=== PATIENT | male | born 1985 | race Caucasian/White ===

== ENCOUNTER 2017-05-15 21:44 | Emergency (ER) | payer BC, OTHER ==
[2017-05-15 21:50] VITALS: RESP 20
[2017-05-15] MEDS ORDERED: PROPARACAINE 0.5% OPHTH DROPS 15 ML BTL RIGHT EYE STA (22:03)
--- NOTE | 2017-05-15 22:33 | XR ---
EXAMINATION TYPE: XR orbit complete bilateral DATE OF EXAM: 05/15/2017 COMPARISON: NONE HISTORY: Eye pain TECHNIQUE: 3 views FINDINGS: Orbital margins are intact. Maxilla is intact. There is no evidence of blowout fracture. Th ere is no sign of radiopaque foreign body. IMPRESSION: Negative orbits exam.
[2017-05-15] MEDS ORDERED: ACET/COD 300 MG/30 MG STARTER PACK 6 TAB BTL PO STA (22:50)
--- NOTE | 2017-05-15 22:50 | ED ---
General Adult HPI - General Chief complaint: ENT Stated complaint: Eye Injury Time Seen by Provider: 05/15/17 21:57 Source: patient, RN notes reviewed Mode of arrival: ambulatory Limitations: no limitations - History of Present Illness Initial comments: This is a 32-year-old male presents to emergency department with chief complaint of right eye pain. Patient states that yesterday at around 1 PM he was working on a vehicle and the alternator fell about arms length with onto his face. Patient states he sustained a small laceration and bled immediately. States bleeding was controlled shortly after. Patient states since that time there has been pain superior to his eye and the eyeball itself. He states that his vision is blurred specifically his right peripheral vision. Patient states that it feels like there is pressure behind his eye. Patient states that he had a foreign material at lateral aspect of eye that removed with a soft Q- tip. Patient denies any foreign body sensation in eye. Patient states that he has taken 2000 mg of Tylenol today and 600 mg of ibuprofen. Denies itchiness. Denies fever, chills, chest pain, shortness of breath, abdominal pain, nausea or vomiting, constipation or diarrhea, dysuria or hematuria, numbness or tingling or headache. - Related Data Home Medications Medication Instructions Recorded Confirmed HYDROcodone/APAP 5-325MG [[place] 5] 1 each PO Q4HR PRN 12/15/14 05/19/15 Propranolol HCl [Propranolol HCl 60 mg PO DAILY 05/18/15 05/19/15 ER] Previous Rx's Medication Instructions Recorded ALPRAZolam [Xanax] 0.5 mg PO BID PRN #6 tablet 12/15/14 Ciprofloxacin HCl [Cipro] 500 mg PO Q12HR #20 tablet 05/18/15 Ibuprofen [Motrin] 800 mg PO Q8HR PRN #30 tab 05/18/15 Ondansetron Odt [Zofran ODT] 4 mg PO Q8HR PRN #10 tab 05/18/15 Doxycycline Hyclate 100 mg PO BID #28 tab 05/19/15 Allergies Allergy/AdvReac Type Severity Reaction Status Date / Time No Known Allergies Allergy Verified 05/15/17 21:49 Review of Systems ROS Statement: Those systems with pertinent positive or pertinent negative responses have been documented in the HPI. ROS Other: All systems not noted in ROS Statement are negative. Past Medical History Past Medical History: Hypertension History of Any Multi-Drug Resistant Organisms: None Reported Past Surgical History: No Surgical Hx Reported Past Psychological History: No Psychological Hx Reported Smoking Status: Never smoker Past Alcohol Use History: Rare Past Drug Use History: None Reported General Exam - General Exam Comments Initial Comments: General: Awake and alert, well-developed; in no apparent distress. HEENT: Head normocephalic. Mild swelling lateral aspect of right eyebrow. There is a small healed abrasion. No surrounding erythema. Pupils are equal, round and reactive to light. Extraocular movements intact. No hyphema or injected conjunctiva. Fluorescein staining revealed no abrasions or ulcers. Visual acuity in right eye was 20/70. IOP of right eye was 13. Oropharynx moist without erythema or exudate. Neck: Supple. Normal ROM. Cardiovascular: Regular rate and rhythm. No murmurs, rubs or gallops. Chest symmetrical. Respiratory: Lungs clear to auscultation bilaterally. No wheezes, rales or rhonchi. Normal respiratory effort with no use of accessory muscles. Skin: [place], warm and dry. Neurological: Alert and oriented x3. CN II-XII grossly intact. Speech is fluent and answers are appropriate. No focal neuro deficits. Psychiatric: Normal mood and affect. No overt signs of depression or anxiety noted. Limitations: no limitations Course Vital Signs 05/15/17 21:45 Temperature 99.4 F Pulse Rate 110 H Respiratory 20 Rate Blood Pressure 166/99 O2 Sat by Pulse 100 Oximetry Medical Decision Making - Medical Decision Making This is a 32-year-old male who presents to emergency department with chief complaint of right eye injury. Fluorescein staining revealed no abrasions or ulcers. Intraocular pressure was 13. X-ray of orbits revealed no acute fractures or dislocations. Patient continues to complain of pain surrounding eye. He will be discharged home and given a referral to ophthalmology. He was advised to call tomorrow morning. Patient given Tylenol #3 to help with pain and sleep. Patient instructed to only take 1 tonight so that he does not exceed maximum daily dose. He is in agreement with the plan and voiced understanding. All questions were answered. - Radiology Data Radiology results: report reviewed Orbit x-ray findings: Orbital margins are intact. Maxilla is intact. There is no evidence of blowout fracture. There is no sign of radiopaque foreign body. Impression: Negative orbits exam Disposition Clinical Impression: Pain in periorbital region of right eye Disposition: HOME SELF-CARE Condition: Good Instructions: Blurred Vision (ED), Eye Pain (ED) Additional Instructions: Please follow up with Dr. Mchugh, ophthalmology tomorrow morning. Please take medications as prescribed. Please follow up with primary care provider within 1- 2 days. Return to emergency department if symptoms should worsen or any concerns arise. Referrals: None,Stated [Primary Care Provider] - 1-2 days Sheldon Mchugh MD [STAFF PHYSICIAN] - 1-2 days Time of Disposition: 22:53
[2017-05-15 23:04] VITALS: BP 156/80; PULSE 97; TEMP 99
== END 2017-05-15 23:04 | disposition home or self-care (01) ==
LOC: EC 21:44
DX: H57.11 Ocular pain, right eye (principal); I10 Essential (primary) hypertension; Z79.899 Other long term (current) drug therapy
CPT/HCPCS: 70200; 99283

== ENCOUNTER 2021-06-06 17:01 | Emergency (ER) | payer BC ==
[2021-06-06 18:20] VITALS: TEMP 99.5
[2021-06-06] MEDS ORDERED: SODIUM CHLORIDE 0.9% 1,000 ML IV STA (20:58)
[2021-06-06] MEDS ORDERED: SODIUM CHLORIDE 0.9% 50 ML IVPB ONE (21:30)
--- NOTE | 2021-06-06 21:36 | XR ---
EXAMINATION TYPE: XR chest 1V portable DATE OF EXAM: 06/06/2021 COMPARISON: 07/27/2012 INDICATION: Covid TECHNIQUE: Single frontal view of the chest is obtained. FINDINGS: The heart size is normal. The pulmonary vasculature is normal. The lungs are clear. IMPRESSION: 1. No acute pulmonary process.
--- NOTE | 2021-06-06 21:44 | ED ---
URI HPI - General Chief Complaint: Upper Respiratory Infection Stated Complaint: covid+, wants infusion Time Seen by Provider: 06/06/21 20:47 Source: patient, RN notes reviewed Mode of arrival: ambulatory Limitations: no limitations - History of Present Illness Initial Comments: Patient is a 36-year-old male with history of hypertension, presenting to the emergency department requesting monoclonal antibodies. Patient states he tested positive for covid 10 days ago, symptoms began that day as well. He states been having increased cough, shortness of breath, fatigue. He denies any abdominal pain, some intermittent nausea, no appetite. He denies any diarrhea, no chest pain some intermittent shortness of breath when he tries do a lot of activity. No dizziness or lightheadedness. Has been having intermittent fevers. He has no further complaints. His vital signs are stable upon arrival. - Related Data Home Medications Medication Instructions Recorded Confirmed HYDROcodone/APAP 5-325MG [[place] 5] 1 each PO Q4HR PRN 12/15/14 05/19/15 Propranolol HCl [Propranolol HCl 60 mg PO DAILY 05/18/15 05/19/15 ER] Previous Rx's Medication Instructions Recorded ALPRAZolam [Xanax] 0.5 mg PO BID PRN #6 tablet 12/15/14 Ciprofloxacin HCl [Cipro] 500 mg PO Q12HR #20 tablet 05/18/15 Ibuprofen [Motrin] 800 mg PO Q8HR PRN #30 tab 05/18/15 Ondansetron Odt [Zofran ODT] 4 mg PO Q8HR PRN #10 tab 05/18/15 Doxycycline Hyclate 100 mg PO BID #28 tab 05/19/15 Albuterol Inhaler [Ventolin Hfa 1 puff INHALATION RT-QID PRN #8 gm 06/06/21 Inhaler] Allergies Allergy/AdvReac Type Severity Reaction Status Date / Time No Known Allergies Allergy Verified 06/06/21 18:20 Review of Systems ROS Statement: Those systems with pertinent positive or pertinent negative responses have been documented in the HPI. ROS Other: All systems not noted in ROS Statement are negative. Past Medical History Past Medical History: Hypertension History of Any Multi-Drug Resistant Organisms: None Reported Past Surgical History: No Surgical Hx Reported Past Psychological History: No Psychological Hx Reported Past Alcohol Use History: Rare Past Drug Use History: None Reported General Exam - General Exam Comments Initial Comments: GENERAL: Patient is well-developed and well-nourished. Patient is nontoxic and in no acute distress. HEAD: Atraumatic, normocephalic. EYES: Pupils equal round and reactive to light, extraocular movements intact, sclera anicteric, conjunctiva are normal. Eyelids were unremarkable. ENT: Moist mucous membranes. NECK: Normal range of motion, supple without lymphadenopathy or JVD. LUNGS: Unlabored respirations. Breath sounds clear to auscultation bilaterally and equal. No wheezes rales or rhonchi. HEART: Regular rate and rhythm without murmurs, rubs or gallops. MUSCULOSKELETAL: Normal extremities with adequate strength and normal range of motion, no pitting or edema. No clubbing or cyanosis. NEUROLOGICAL: Patient is alert and oriented x 3. SKIN: Warm, Dry, normal turgor, no rashes or lesions noted. Limitations: no limitations Course Vital Signs 06/06/21 06/06/21 06/06/21 18:17 21:30 22:00 Temperature 99.5 F Pulse Rate 82 98 Respiratory 19 18 16 Rate Blood Pressure 154/101 141/99 O2 Sat by Pulse 98 97 Oximetry Medical Decision Making - Medical Decision Making Patient is a 36-year-old male that tested positive for covert 10 days ago, requesting monoclonal antibodies. His vitals are stable exam reveals no acute findings. Patient did receive monoclonal antibodies with out adverse side effects. The patient inhaler for her symptoms. Recommended Tylenol and/or Motrin. Increase his fluids. He is agreeable to this plan of care. He can follow up with his primary care. Return parameters were discussed with him and he verbalized understanding. Disposition Clinical Impression: COVID-19 Disposition: HOME SELF-CARE Condition: Stable Instructions (If sedation given, give patient instructions): Coronavirus Disease 2019 (COVID-19) Additional Instructions: Please return to the Emergency Department if symptoms worsen or any other concerns. Use inhaler as needed for any cough or shortness of breath. Continue to increase your fluids. Follow up with your primary care. Prescriptions: Albuterol Inhaler [Ventolin Hfa Inhaler] 1 puff INHALATION RT-QID PRN #8 gm PRN Reason: Shortness Of Breath Is patient prescribed a controlled substance at d/c from ED?: No Referrals: Jermaine Whitt III, MD [Primary Care Provider] - 1-2 days Time of Disposition: 23:06
[2021-06-06] MEDS ORDERED: CASIRIVIMAB (REGN10933) (EUA) 600 MG, IMDEVIMAB (REGN10987) (EUA) 600 MG in SODIUM CHLO... IVPB ONE (22:00)
[2021-06-06 22:21] VITALS: BP 141/99; PULSE 98
[2021-06-06 22:40] VITALS: RESP 16
== END 2021-06-06 23:57 | disposition home or self-care (01) ==
LOC: EC 17:01
DX: U07.1 COVID-19 (principal); I10 Essential (primary) hypertension; Z79.1 Long term (current) use of non-steroidal anti-inflammatories (NSAID); Z79.51 Long term (current) use of inhaled steroids; Z79.899 Other long term (current) drug therapy
CPT/HCPCS: 71045; 99285; Q0244

== ENCOUNTER → 2024-05-26 | Outpatient (CLI) | payer BC ==
--- NOTE | 2024-05-26 18:16 | CT ---
EXAMINATION TYPE: CT chest wo/w con DATE OF EXAM: 05/26/2024 5:28 PM COMPARISON: Chest radiograph 06/06/2021. CT 05/18/2015. CLINICAL INDICATION: Male, 39 years old with history of R06.02 SOB S20.219A CONTUSION OF UNSPECIFIED FRONT; , Football tackling injury x3wks ago. Left side chest and rib pain with bruising. Difficulty b reathing and laying flat. TECHNIQUE: Multiple axial images were obtained through the chest. Sagittal and coronal reformats were created for review. MIP was performed on a separate workstation. Contrast used:100 ml mL of Isovue 370 with IV Contrast (None if empty) Oral contrast used: (None if empty) CT DLP: 1513 mGycm, Automated exposure control for dose reduction was used. FINDINGS: LUNGS/ PLEURA: Right middle lobe 5 mm pulmonary nodule. No focal consolidation, pneumothorax pleural effusion. AIRWAY: Patent and unremarkable. HEART: Size within normal limits. MEDIASTINUM: No gross evidence of adenopathy. VASCULATURE: No aortic aneurysm. MUSCULOSKELETAL: Acute anterior fractures of left ribs 4,5,6. There is cortical buckling without sign ificant displacement. SOFT TISSUES/LYMPH NODES: Unremarkable. LOWER NECK: No significant findings. UPPER ABDOMEN: No significant findings. IMPRESSION: 1. Acute left anterior ribs 4 5 and 6 fractures. With minimal displacement. 2. No evidence for acute intrathoracic process. 3. Right lower lobe 5 mm pulmonary nodule. Stable back to 2014. Follow up recommendations for incidental pulmonary nodules, if there are any, are per [employer] [employer] or [employer]. https://radiopaedia.org/articles/fnhuypvlip-xqkkrvn-ahqysumyq-xfivvy-uztlbenhxugmthf-[email or web address]?lang=us [facility], , 05/26/2024 6:14 PM
== END | disposition home or self-care (01) ==
LOC: RADCTMAIN 16:33
PROVIDERS: ATTEND Family Medicine
DX: S22.42XA Multiple fractures of ribs, left side, initial encounter for closed fracture (principal); S20.219A Contusion of unspecified front wall of thorax, initial encounter; R91.1 Solitary pulmonary nodule
CPT/HCPCS: 71270; Q9967

== ENCOUNTER → 2024-12-15 | Outpatient (CLI) | payer BC ==
--- NOTE | 2024-12-15 17:54 | XR ---
EXAMINATION TYPE: XR chest 2V DATE OF EXAM: 12/15/2024 5:49 PM COMPARISON: 12/15/2024 CLINICAL INDICATION: Male, 39 years old with history of S22.32XA; PHH TECHNIQUE: XR chest 2V Frontal and lateral views of the chest. FINDINGS: Lungs/Pleura: There is no evidence of pleural effusion, focal consolidation, or pneumothorax. Pulmonary vascularity: Unremarkable. Heart/mediastinum: Cardiomediastinal silhouette is unremarkable. Musculoskeletal: No acute osseous pathology. IMPRESSION: No acute cardiopulmonary disease/process. [facility], , 12/15/2024 5:52 PM
--- NOTE | 2024-12-15 17:56 | XR ---
EXAMINATION TYPE: XR ribs LT DATE OF EXAM: 12/15/2024 5:49 PM COMPARISON: 12/15/2024 CLINICAL INDICATION: Male, 39 years old with history of PAIN; PHH, pain TECHNIQUE: XR ribs LT; Frontal and oblique views of the ribs with frontal chest radiograph. FINDINGS: The ribs have a normal appearance. No evidence of fracture. Overall, the lungs are clear. The cardiac silhouette is normal in size. The remaining osseous structures are intact. IMPRESSION: No acute osseous pathology. [facility], , 12/15/2024 5:54 PM
== END | disposition home or self-care (01) ==
LOC: RADXRMAIN 17:18
PROVIDERS: ATTEND Physician Assistant
DX: S22.32XA Fracture of one rib, left side, initial encounter for closed fracture (principal)
CPT/HCPCS: 71046